=== PATIENT | male | born 1970 | race Caucasian/White ===

== ENCOUNTER 2018-02-28 23:46 | Emergency (ER) | payer OTHER ==
[~2018-02-28] VITALS: Ht 172.7 cm; Wt 76.7 kg
== END 2018-03-01 12:46 | disposition home or self-care (01) ==
LOC: ER 23:46
DX: K29.70 Gastritis, unspecified, without bleeding (principal)

== ENCOUNTER 2019-06-14 07:16 | Outpatient (CLI) | payer OTHER | END 2019-06-14 07:28 | disposition home or self-care (01) | LOC: NUCLEAR 07:16 | DX: R07.89 Other chest pain (principal); I25.10 Atherosclerotic heart disease of native coronary artery without angina pectoris | CPT/HCPCS: 78452; 93017; A9500 ==

== ENCOUNTER 2019-06-14 10:16 | Outpatient (CLI) | payer OTHER | END 2019-06-14 10:18 | disposition home or self-care (01) | LOC: RAD 10:16 | DX: J90 Pleural effusion, not elsewhere classified (principal) ==

== ENCOUNTER 2019-11-20 07:01 | Outpatient (CLI) | payer OTHER | END 2019-11-20 07:05 | disposition home or self-care (01) | LOC: LAB 07:01 | DX: Z12.11 Encounter for screening for malignant neoplasm of colon (principal); R09.02 Hypoxemia ==

== ENCOUNTER 2019-11-28 06:00 | Day surgery (SDC) | payer OTHER | END 2019-11-28 10:25 | disposition home or self-care (01) | LOC: AMB-ENDOS 06:00 → ADM 15:00 | DX: K62.89 Other specified diseases of anus and rectum (principal); Z12.11 Encounter for screening for malignant neoplasm of colon ==

== ENCOUNTER 2023-08-21 08:04 | Outpatient (CLI) | payer OTHER | END 2023-08-21 08:08 | disposition home or self-care (01) | LOC: RX STUDY 08:04 | PROVIDERS: ATTEND Internal Medicine | DX: R13.12 Dysphagia, oropharyngeal phase (principal) ==

== ENCOUNTER → 2024-07-25 07:28 | Outpatient (CLI) | payer OTHER | END | disposition home or self-care (01) | LOC: NUCLEAR 07:00 | PROVIDERS: ATTEND Surgery | DX: R19.06 Epigastric swelling, mass or lump (principal) ==